=== PATIENT | female | born 1980 | race Caucasian/White ===

== ENCOUNTER 2020-09-27 16:48 | Outpatient (REF) | payer MEDICAID, SELFPAY | END 2020-09-27 16:49 | disposition home or self-care (01) | LOC: HO.LAB 16:48 | PROVIDERS: PCP Internal Medicine; Visit Provider Internal Medicine | DX: Z20.828 Contact with and (suspected) exposure to other viral communicable diseases (principal) | CPT/HCPCS: C9803; U0003 ==

== ENCOUNTER 2021-02-23 09:32 | Outpatient (REF) | payer OTHER, SELFPAY ==
[2021-02-23 11:28] LABS: Hematocrit 39.1 % (37-47); Hemoglobin 13.5 g/dl (12.0-16.0); Mean Corpuscular HGB Conc 34.5 g/dl (31.0-35.0); Mean Corpuscular Hemoglobin 30.3 pg (27.0-33.0); Mean Corpuscular Volume 87.7 fL (80-98); Mean Platelet Volume 11.1 fL (9.4-12.3); Platelet Count 241 X10*3/uL (160-400); Red Blood Count 4.46 X10*6/uL (4.20-5.50); Red Cell Distribution Width 12.4 % (11.0-16.0); White Blood Count 7.8 X10*3/uL (4.8-10.8)
[2021-02-23 11:28] LABS: Glucose Urine UA NEG (NEG); Leukocyte Esterase Urine NEG (NEG); Nitrite Urine NEG (NEG); Specific Gravity - Urine >= 1.030 (1.005-1.025); Urine Blood 3+ (NEG); Urine Ketones NEG (NEG); Urine Protein NEG (NEG-TRACE)
[2021-02-23 11:31] LABS: Appearance Urine HAZY; Color Urine YELLOW
[2021-02-23 11:48] LABS: Bacteria Urine 2+ /LPF; Mucus Urine 2+ /LPF; Squamous Epithelial Cell Urine 3+ /LPF
[2021-02-23 11:54] LABS: Alanine Aminotransferase 21 U/L (0-31); Alkaline Phosphatase 34 U/L (39-117); Anion Gap 13 (12-20); Aspartate Amino Transferase 17 U/L (5-31); Bilirubin Total 0.7 mg/dL (0.0-1.0); Blood Urea Nitrogen 15 mg/dL (9-16); Calcium 9.1 mg/dL (8.4-10.2); Carbon Dioxide 22 mmol/L (22-29); Chloride 108 mmol/L (96-108); Cholesterol 194 mg/dL; Estimated Glomerular Filt Rate > 60; Glucose Fasting 83 mg/dL (60-99); HDL Cholesterol 59 mg/dL; LDL Cholesterol Calculated 108 mg/dl; Potassium 4.1 mmol/L (3.3-5.1); Sodium 139 mmol/L (135-145); Total Protein 6.5 g/dL (6.5-8.0); Triglycerides 136 mg/dL
[2021-02-23 12:03] LABS: TSH reflex Free T4 0.65 uIU/mL (0.32-4.0)
== END 2021-02-23 09:33 | disposition home or self-care (01) ==
LOC: HO.HMGCLDS 09:32
PROVIDERS: PCP Internal Medicine; Visit Provider Internal Medicine
DX: Z00.00 Encounter for general adult medical examination without abnormal findings (principal)
CPT/HCPCS: 36415; 80053; 80061; 81001; 84443; 85027

== ENCOUNTER 2021-03-07 08:47 | Outpatient (REF) | payer OTHER, SELFPAY ==
[2021-03-07 11:53] LABS: Amorphous Sediment Urine 4+ /LPF; RBC Urine 0 /HPF (0); Squamous Epithelial Cell Urine 1+ /LPF; WBC Urine 0 /HPF (0-4)
[2021-03-07 11:58] LABS: Appearance Urine CLOUDY; Color Urine YELLOW; Glucose Urine UA NEG (NEG); Leukocyte Esterase Urine NEG (NEG); Nitrite Urine NEG (NEG); Specific Gravity - Urine >= 1.030 (1.005-1.025); Urine Blood NEG (NEG); Urine Ketones NEG (NEG); Urine Protein NEG (NEG-TRACE)
[2021-03-07 11:59] LABS: Rheumatoid Factor < 15.0 IU/mL (<15.0)
[2021-03-07 12:26] LABS: Folate 15.9 ng/mL (> or = 4.0); Vitamin B12 362 pg/mL (200-900)
[2021-03-07 12:53] LABS: Erythrocyte Sedimentation Rate 12 MM/HR (0-20)
[2021-03-08 08:57] LABS: Lyme Abs Screen <0.90 index
[2021-03-09 14:02] LABS: Anti Nuclear Antibody Screen POSITIVE (NEGATIVE)
== END 2021-03-07 08:48 | disposition home or self-care (01) ==
LOC: HO.HMGCLDS 08:47
PROVIDERS: PCP Internal Medicine; Visit Provider Physician Assistant Medical
DX: Z00.00 Encounter for general adult medical examination without abnormal findings (principal); M79.10 Myalgia, unspecified site
CPT/HCPCS: 36415; 81001; 82607; 82746; 85652; 86038; 86039; 86431; 86617; 86618

== ENCOUNTER 2021-03-13 12:03 | Outpatient (REF) | payer OTHER, SELFPAY ==
--- NOTE | ~2021-03-13 | XR_ITS ---
EXAMINATION: XR BILATERAL HIPS WITH AP PELVIS CLINICAL INFORMATION: Trochanteric bursitis left hip COMPARISON: None TECHNIQUE: AP view of the pelvis and single views of each hip were obtained. FINDINGS: There is normal symmetry of bilateral SI joints and bilateral hip joints. No visible acute fracture, dislocation or lytic process seen. The soft tissues are normal. XR/XR hip BI w [id number] IMPRESSION: Unremarkable AP pelvis and bilateral hip exam.
== END 2021-03-13 12:04 | disposition home or self-care (01) ==
LOC: HO.XRAY 12:03
PROVIDERS: PCP Internal Medicine; Visit Provider Physician Assistant Medical
DX: M70.62 Trochanteric bursitis, left hip (principal)
CPT/HCPCS: 73521

== ENCOUNTER 2021-10-11 06:26 | Outpatient (REF) | payer OTHER, SELFPAY | END 2021-10-11 06:27 | disposition home or self-care (01) | LOC: HO.HMGCLDS 06:26 | PROVIDERS: Visit Provider Internal Medicine | DX: Z20.822 Contact with and (suspected) exposure to COVID-19 (principal) | CPT/HCPCS: C9803; U0003; U0005 ==